=== PATIENT | male | born 1970 | race Caucasian/White ===

== ENCOUNTER 2017-04-05 10:23 | Emergency (ER) | payer OTHER ==
[~2017-04-05] VITALS: Ht 177.8 cm; Wt 113.6 kg
[2017-04-05 11:42] LABS: BLOOD UREA NITROGEN 12 mg/dL (7-18)
[2017-04-05 11:50] LABS: ASPARTATE AMINO TRANSFERASE 21 U/L (15-37)
[2017-04-05] MEDS ORDERED: SODIUM CHLORIDE 0.9% 1,000ML IVBOLUS ONE (12:00)
[2017-04-05] MEDS ORDERED: OMNIPAQUE 350 MG/ML, 100ML BOTTLE ONE (12:41)
[2017-04-05 13:15] VITALS: BP 123/86
== END 2017-04-05 14:13 | disposition home or self-care (01) ==
LOC: ED 12:44
DX: K57.30 Diverticulosis of large intestine without perforation or abscess without bleeding (principal)
CPT/HCPCS: 36415; 74177; 80053; 81003; 83690; 85025; 93005; 99285; Q9967